=== PATIENT | male | born 1995 | race Caucasian/White ===

== ENCOUNTER 2020-11-08 17:40 | Emergency (ER) | payer OTHER, MEDICAID, SELFPAY ==
--- NOTE | ~2020-11-08 | XR_ITS ---
EXAMINATION: XR CHEST CLINICAL INFORMATION: s/p Heimlich, r/o aspiration COMPARISON: None TECHNIQUE: Frontal view of the chest was obtained. FINDINGS: No significant abnormality is noted involving the heart, lungs, mediastinum, bony thorax or soft tissues. XR/XR chest 1V IMPRESSION: Unremarkable examination.
[2020-11-08 17:49] VITALS: BP 112/67; PULSE 110; RESP 24; TEMP 37.2; O2SAT 89; BMI 27.9
--- NOTE | 2020-11-08 17:58 | PC.NURSE ---
insulation cupola charger notified of etiology.
--- NOTE | 2020-11-08 18:06 | PC.NURSE ---
pt placed on 3L via nc, with noted improvement to saturation. pt then mvoed to wheelchair and encouraged to stay close to triage room.
--- NOTE | 2020-11-08 18:56 | ED.GENADULT ---
HPI - General Adult General Chief complaint: Dyspnea Stated complaint: chocked steak Time Seen by Provider: 11/08/20 18:45 Source: patient and family Mode of arrival: ambulatory Limitations: no limitations History of Present Illness HPI narrative: Patient comes to emergency room complaining of choking event prior to arrival. Patient states that he was eating steak, all of a sudden could not breathe for a 2nd and started coughing. The patient's father did the Heimlich maneuver, patient was able to spit out 2 large pieces of steak, then drank water and he was able to breeze. After this event, patient continued eating and drinking. The father was concerned that the patient had gurgling noises coming from his throat even though the patient was reading eating and drinking. On arrival, it was documented that the patient's oxygen saturation is 89% on room air and placed on 2 L. however, when I evaluated the patient, patient was on room air saturating at 98%, breathing comfortably, no stridor. Related Data Allergies Allergy/AdvReac Type Severity Reaction Status Date / Time No Known Allergies Allergy Unverified 02/06/20 16:39 [No Known Allergies*] Review of Systems Review of Systems: Constitutional : No Weight loss, No Fever, No Chills, No Night Sweats, No Fatigue, No Malaise ENT/Mouth : No Hearing loss, No Ear Pain, No Nasal Congestion, No Sinus Pain, No Hoarseness, No sore throat, No Rhinorrhea, No Swallowing Difficulty Eyes: No Eye Pain, No Swelling, No Redness, No Foreign Body, No Discharge, No Vision Changes Cardiovascular : No Chest Pain, No SOB, No Dyspnea on Exertion, No Orthopnea, No Edema, No Palpitations Respiratory : No Cough, No Sputum, No Wheezing, No Smoke Exposure, No Dyspnea Gastrointestinal : No Nausea, No Vomiting, No Diarrhea, No Constipation, No abdominal Pain, No Hematochezia, No Melena, status post choking event Genitourinary : no irregular bleeding, No Dysuria, No Urinary Frequency, No Hematuria, No Urinary Incontinence, No Urgency, No Flank Pain, No Urinary Flow Changes, No Hesitancy Musculoskeletal : No joint pain, No Myalgias, No Joint Swelling Skin : No Skin Lesions, No rash Neuro : No Weakness, No Numbness, No Paresthesias, No Loss of Consciousness, No Dizziness, No Headache Psych : No Anxiety/Panic, No Depression, No SI/HI/AH/VH, No Social Issues, Heme/Lymph: No Bruising, No Bleeding,No Lymphadenopathy Endocrine : No Polyuria, No Polydipsia, No Temperature Intolerance PMF Past Medical History Medical History Autism Seizure Surgical History No history of previous surgery Social History Social History Alcohol intake: never Patient Tobacco Use Status: Never used Tobacco Use of substances other than those prescribed or required for medical reasons: Yes Advance Directives: No Advance Directives Information Provided: No Physical Exam Vital Signs: Vital Signs: Last Vital Signs Temp 97.7 F 11/08/20 19:16 Pulse 104 H 11/08/20 19:16 Resp 18 11/08/20 19:16 BP 118/80 11/08/20 19:16 Pulse Ox 94 11/08/20 19:16 Body Mass Index 27.9 Appearance: Alert. Oriented X3. No acute distress. Eyes: Pupils equal, round and reactive to light. ENT: Pharynx normal. Neck: Normal inspection. Neck supple. No lymph nodes noted. No crepitus CVS: Normal heart rate and rhythm. Pulses normal. Normal S1 and S2 Respiratory: No respiratory distress. Breath sounds normal. No Wheezing. No rales Abdomen: Soft and nontender. No rigidity. No distention. , no abdominal ecchymosis Skin: Skin warm and dry. Normal skin color. Normal skin turgor. Extremities: No lower extremity edema. No lower extremity edema. No Lacerations. No Rash Neuro: Oriented X 3. No motor deficit. No sensory deficit. Moving all extermities. No slurred speech. Course Course Course Narrative: Patient has been on observation for almost 3 hours, patient's oxygen saturation has remained constant above 98% on room air. No coughing, no stridor. Patient is asymptomatic. He was p.o. challenged with both fluids and solids and did well. I discussed the x-ray with his father as well. Medical Decision Making Imaging Data Chest x-ray: Radiologist's impression: CLINICAL INFORMATION: s/p Heimlich, r/o aspiration COMPARISON: None TECHNIQUE: Frontal view of the chest was obtained. FINDINGS: No significant abnormality is noted involving the heart, lungs, mediastinum, bony thorax or soft tissues. XR/XR chest 1V IMPRESSION: Unremarkable examination. Discharge Plan Discharge Clinical Impression: Choking due to food in larynx Qualifiers: Encounter type: initial encounter Qualified Code(s): T17.320A - Food in larynx causing asphyxiation, initial encounter Patient Disposition: Home, Self-Care Instructions: Performing the Heimlich Maneuver (ED) Additional Instructions: Please follow-up with your primary care physician tomorrow. If you have any worsening or new symptoms, please return to the emergency room or call 911
[2020-11-08 19:16] VITALS: BP 118/80; PULSE 104; RESP 18; TEMP 36.5; O2SAT 94
--- NOTE | 2020-11-08 19:22 | PC.NURSE ---
noticed that while taking vital signs patients SO2 would droip to mid 80s and then shoot right back up. Inspected the hand and found the SPO2 monitor had been placed over a fingure which had a bandaid and moved the SPO2 monitor to another figure. SPO2 came back up to upper 90s.
== END 2020-11-08 21:36 | disposition home or self-care (01) ==
PROVIDERS: Emergency Provider Emergency Medicine; PCP Internal Medicine Medical Oncology
DX: T17.320A Food in larynx causing asphyxiation, initial encounter (principal); X58.XXXA Exposure to other specified factors, initial encounter; Y93.9 Activity, unspecified; Y92.9 Unspecified place or not applicable; Y99.9 Unspecified external cause status
CPT/HCPCS: 71045; 99283; 99284

== ENCOUNTER 2025-04-28 15:00 | Outpatient (AMB) | payer MEDICAID, SELFPAY ==
--- OUTSIDE RECORDS SUMMARY | 2024-01-17 11:00 | XMS_ITS ---
Author Organization Iain Rao III, MD Address [address] [place] [address] [place] [address] Care Team Providers Care Green Chain Puller Name Role Phone Dr. Iain Rao III Primary Care Provider Allergies Allergen (clinical drug ingredient) Drug/Non Drug Allergy documented on EMR Reaction Allergy Type Onset Date Status No Known Drug Allergy Unknown Drug Allergy Active REASON FOR VISIT annual exam Medications Medication SIG (Take, Route, Fr equency, Duration) Notes Start Date End Date Status levETIRAcetam 500 MG Oral Active Social History Tobacco Use: Social History Observation Description Date Details (start date - stop date) Never Smoker NA - NA Sex Assigned At : Social History Observation Description Sex Assigned At Male Tobacco Use/Smoking Question Answer Notes Patient is a nonsmoker Additional Findings: Tobacco Non-User Aggressive non-smoker Alcohol Screen Question Answer Notes Did you have a drink containing alcohol in the p ast year? No Points 0 Interpretation Negative Vital Signs Temperature 98.4 degrees Fahrenheit 01/17/20 24 Blood pressure systolic 109 mm Hg 01/17/20 24 Blood pressure diastolic 68 mm Hg 024 Heart Rate 81 /min 01/17/2024 Height 69 in 01/17/2024 Weight 187 lbs 01/17/2024 BMI 27.61 kg/m2 01/17/2024 Encounters Encounter Location Date Provider Diagnosis Iain Rao III, MD [address] [place] [address] [place] [address] 01/17/2024 Iain Rao Seizure disorder G40.909 ; Autism F84.0 and Overweight E66.3 Assessments Encounter Date Diagnosis (ICD Code) Assessment Notes Treatment Notes Treatment Clinical Notes 01/17/2024 Seizure disorder (ICD-10 - G40.909) He will continue on his current medications. I have suggested he see the neurologist at least once a year. 01/17/2024 Autism (ICD-10 - F84.0) This problem is stable and a diagnosis has been made. He is currently in transition from school to work. 01/17/2024 Overweight (ICD-10 - E66.3) His body mass index is now 27. We discussed his diet and nutrition at length. He will continue to lose weight until his body mass index is in the normal range. He will be physically active. Plan Of Treatment Medication Medication Name Sig Start Date Stop Date Notes levETIRAcetam 500 MG Oral Next Appt Details Follow Up: 6 Months, Reason: OV Provider Name:Iain Rao , 05/14/2025 09:30:00 AM, [address] [place] [address], [id number], Progress Notes * Brooks GERMAINDOB:1995 (28 yo M)Acc No.[id number]:01/17/2024 Progress Notes Patient: Brooks Barclay Provider: Taco Rao MD :1995 A ge:28 Y S ex:Male Date:01/17/2024 Address:[address] [place], [place] [id number] Subjective: * Chief Complaints: * A nnual exam * HPI: D epression Screening: He returns to the office at the age of 28 for his annual physical examination. He was accompanied by his father who says he has been healthy and well since his last visit. He is taking no new medications. He has had no hospitalizations or emergency room visits. He has had no invasive procedures. He has no new allergies. PHQ-9 L ittle interest or pleasure in doing things?More than half the days F eeling down, depressed, or hopeless N ot at all T rouble falling or staying asleep, or sleeping too much N ot at all F eeling tired or having little energy N ot at all P oor appetite or overeating N ot at all F eeling bad about yourself or that you are a failure, or have let yourself or your family down N ot at all T rouble concentrating on things, such as reading the newspaper or watching television N ot at all M oving or speaking so slowly that other people could have noticed; or the opposite, being so fidgety or restless that you have been moving around a lot more than usual N early every day T houghts that you would be better off or of hurting yourself in some way N ot at all T otal Score 5 I nterpretation M ild Depression C OVID-19 Screening: Questions H ave you experienced fever, chills, cough, sore throat, shortness of breath, difficulty breathing, muscle aches, loss of taste or smell? N o H ave you been exposed to the virus within the last 10 days? N o H ave you travelled internationally in the last 10 days? N o H ave you been exposed to COVID-19 in the past? N o S IMELDA Questions: SDOH Questions I n the past year have you been worried about losing your housing? N o I n the past year have you or any family members you live with been unable to get any of the following when it was really needed? Check all that apply: F ood * ROS: G eneral/Constitutional: pain o nly normal aches and pains. C hills d enies.?Fatigue a dmits. F ever d enies. E NT: Decreased hearing d enies. R espiratory: Cough d enies. C ardiovascular: Chest pain with exertion d enies. D yspnea on exertion?denies. S hortness of breath d enies. G astrointestinal: Constipation o ccasional. D ecreased appetite d enies. D iarrhea d enies. H eartburn d enies. N ausea d enies. R ectal bleeding d enies. V omiting d enies. H ematology: bruising d enies. p etechiae d enies. S wollen glands n one have been noted. G enitourinary: Frequent urination d enies. M usculoskeletal: Muscle aches d enies. P ainful joints d enies. S ciatica d enies. W eakness d enies. S kin: Itching d enies. R maria dolores d enies. S kin lesion(s)?denies. N eurologic: Difficulty speaking d enies. D izziness d enies.?Headache d enies. L ow back pain d enies. P sychiatric: Depressed mood d enies. * Medical History: * Surgical History: D enies Past Surgical History * Hospitalization/Major Diagno stic Procedure: D enies Past Hospitalization * Family History: F ather: alive 54 yrs, Anxiety and depression. M other: alive 51 yrs, Hyperlipidemia. He has no brothers or sisters. He has no children. His parents are alive and well. His father has a history of anxiety and depression. He is not aware of any other family history of mental illness. He is not aware of any family history of addiction or substance use disorder. * Social History: T obacco Use: T obacco Use/Smoking P atient is a n onsmoker A dditional Findings: Tobacco Non-User A ggressive non-smoker D rugs/Alcohol: D rugs H ave you used drugs other than those for medical reasons in the past 12 months? N o Alcohol Screen D id you have a drink containing alcohol in the past year? N o P oints 0 I nterpretation N egative Radha cid is autistic and lives with his parents who are healthy and well. He lives and [place], [place], and was born in [place], [place]. He is currently in transition from school to employment. * Medications: T akinglevETIRAcetam 500 MG Tablet Oral Medication List reviewed and reconciled with the patientTaking levETIRAcetam 500 MG Tablet Oral Medication List reviewed and reconciled with the patient * Allergies: N o Known Drug Allergyno[Allergies Verified] Objective: * Vitals: H t: 69, Wt: 187, BMI:27.61, BP: 109/68, HR: 81, Temp: 98.4, Wt-k.82. * Examination: G eneral Examination: GENERAL APPEARANCE: p leasant, well nourished, well developed, in no acute distress, calm and relaxed , overweight , man. HEAD: a traumatic, normocephalic. EYES: e gil, perrla, anicteric, conjugate. EARS: n ormal. NOSE: s eptum intact. ORAL CAVITY: n ormal, unremarkable. NECK/THYROID: n o jugular venous distention, no carotid bruit, thyroid normal. LYMPH NODES: n o enlarged lymph nodes,spleen normal. SKIN: n o suspicious lesions, anicteric. HEART: n o clicks, gallops, murmurs, or rubs, regular rhythm, S1, S2 normal, no s3, or vascular bruits. LUNGS: c lear to auscultation . BREASTS: no masses palpable bilaterally. ABDOMEN: b owel sounds normal, no ascites, no organomegaly, no mass , overweight. RECTAL EXAM: n ot examined. MUSCULOSKELETAL: e xtremities unremarkable, no clubbing, cyanosis or edema. PERIPHERAL PULSES: n ormal. NEUROLOGIC: a lert and oriented, cranial nerves 2-12 grossly intact, deep tendon reflexes 2+ symmetrical, motor strength normal upper and lower extremities, sensory exam intact. PSYCH: a lert, oriented, Autistic. Assessment: * Assessment: 1. S eizure disorder - G40.909 (Primary), He will continue on his current medications. I have suggested he see the neurologist at least once a year. 2 . A utism - F84.0, This problem is stable and a diagnosis has been made. He is currently in transition from school to work. 3 . O verweight - E66.3, His body mass index is now 27. We discussed his diet and nutrition at length. He will continue to lose weight until his body mass index is in the normal range. He will be physically active. Plan: * Treatment: * Procedure Codes: * Preventive Medicine: Counseling: C are goal follow-up plan: Counseling for abnormal BMI given Y es Above Normal BMI Follow-up D ietary management education, guidance, and counseling, Dietary needs education, Exercise promotion: strength training, Exercise promotion: stretching, Feeding regime, Giving encouragement to exercise, Lifestyle education regarding diet, Nutrition / feeding management, Nutrition therapy, Prescribed activity/exercise education, Prescribed diet education, Prescribed dietary intake, Special diet education, Weight monitoring , Intervention, Order not done: Medical or Other reason not done * Follow Up: 6 Months (Reason: OV) * Images: * Sign off status: Completed true * Provider: Taco Rao MD Date: 0 01/17/2024 Generated for Printi ng/Eligio/eTransmitting on: 1 06/30/2024 12:26 AM EST History and Physical Notes * HPI (History of Present Illness) Category Sub-Category Detail Notes Depression Screening PHQ-9 Little inte rest or pleasure in doing things: More than half the days Feeling down, depressed, or hopeless: No t at all Trouble falling or staying asleep, or sl eeping too much: Not at all Feeling tired or having little energy: N ot at all Poor appetite or overeating: Not at all Feeling bad about yourself o r that you are a failure, or have let yourself or your family down: Not at all Trouble concentrating on thi ngs, such as reading the newspaper or watching television: Not at all Moving or speaking so slowly that other people could have noticed; or the opposite, being so fidgety or restless that you have been moving around a lot more than usual: Nearly every day Thoughts that you would be b rula off or of hurting yourself in some way: Not at all Total Score: 5 Interpretation: Mild Depression COVID-19 Screening Questions Have you had any new onset fever, chills, cough, congestion, sore throat, shortness of breath, muscle aches?: No Have you been exposed to the virus withi n the last 10 days?: No Have you travelled internationally in e last 10 days?: No Have you been exposed to COVID-19 in the past?: No SDOH Questions SDOH Questions In the past year have you been worried about losing your housing?: No In the past year have you or any family members you live with been unable to get any of the following when it was really needed? Check all that apply:: Food Examination Category Sub-Category Detail Notes General Examination GENERAL APPEARANCE: pleasant , well nourished, well developed, in no acute distress, calm and relaxed , overweight , man HEAD: atraumatic, normocep halic EYES: eomi, perrla, anicte millie, conjugate EARS: normal NOSE: septum intact NECK/THYROID: no jugular venous di stention, no carotid bruit, thyroid normal HEART: no clicks, gallops, murmurs, or rubs, regular rhythm, S1, S2 normal, no s3, or vascular bruits LUNGS: clear to auscultatio n ABDOMEN: bowel sounds normal, no ascites, no organomegaly, no mass , overweight NEUROLOGIC: alert and oriented, cranial nerves 2-12 grossly intact, deep tendon reflexes 2+ symmetrical, motor strength normal upper and lower extremities, sensory exam intact SKIN: no suspicious lesion s, anicteric PERIPHERAL PULSES: normal BREASTS: no masses palpable b ilaterally MUSCULOSKELETAL: extremities unremark able, no clubbing, cyanosis or edema LYMPH NODES: no enlarged lymph no cha,spleen normal RECTAL EXAM: not examined PSYCH: alert, oriented, Aut istic ORAL CAVITY: normal, unremarkable
--- NOTE | 2025-04-28 15:11 | A.OFFVIS_ITS ---
Intake Visit Reasons: 1 YR F/U Accompanied by: Mother Allergies No Known Allergies (No Known Allergies*) Allergy (Unverified 04/28/25 15:16) Medication List - Last Reconciled 04/28/25 by Hillary Alaniz CNP levetiracetam 750 mg orally 1 tablet in the morning and 2 tablets at bedtime; 90 days HPI Comments Details: 29-year-old man with a diagnosis of autism and seizure disorder. He was doing okay. He was taking levetiracetam 750mg in the morning and 1500mg at bedtime, no further seizures. Last seizure in 04/2024. No medication side effects. Sleep was okay. Mood was okay. [facility] Medical History Autism Seizure Surgical History No history of previous surgery Social History Alcohol intake: never Patient Tobacco Use Status: Never used Tobacco Review of Systems Const Denies chills, Denies daytime sleepiness, Denies difficulty sleeping, Denies fatigue, Denies fever(s), Denies frequent falls, Denies headache(s), Denies increased appetite, Denies poor appetite, Denies snoring, Denies weakness, Denies weight gain and Denies weight loss Eyes Denies loss of vision ENT Denies vertigo, Denies dizziness and Denies headache(s) Card Denies chest pain at rest, Denies chest pain with activity, Denies syncope, Denies leg edema and Denies palpitations Resp Denies snoring GI Denies constipation, Denies heartburn, Denies diarrhea and Denies nausea Denies urinary frequency, Denies urinary incontinence and Denies urinary urgency Musc Denies abnormal gait, Denies numbness and Denies tingling Skin/Breast Denies dry skin and Denies rash Neuro Denies abnormal gait, Denies vertigo, Denies dizziness, Denies syncope, Denies frequent falls, Denies headache(s), Denies lack of coordination, Denies loss of vision, Denies memory loss, Denies numbness, Denies restless legs, Reports seizure-like activity, Denies tingling, Denies paresthesias, Denies tremor(s) and Denies weakness Psych Denies anxiety, Denies depression, Denies auditory hallucinations, Denies memory loss, Denies visual hallucinations and Denies suicidal ideation Endo Denies fatigue and Denies palpitations Physical Exam Const Other: General Appearance:? normal, in no acute distress. Skin:? no rashes, no significant birthmarks. Heart:? S1, S2 normal, no murmurs. Lungs:? clear anteriorly and posteriorly. Extremities:? no edema. Psych:? alert, cooperative with exam. Neuro Other: Mental Status:?Alert and awake with normal attention and flat affect. Answers questions in monotone voice. Cranial Nerves:?Pupils are equal, round and reactive to light. External occular muscles are intact. Visual becerra are full. Face is symmetrical. Facial sensations are normal. Tongue is midline. Palate elevates symmetrically. Shoulder shrugging is normal. Hearing to bedside conversation is normal. Sensory Exam:?....? Coordination:?No ataxia,?no titubation.? Gait Exam: Within normal limits. Cerebellar Signs:?Qungbl-ta-plbd is okay. Extrapyramidal System:?No tremor, rigidity with normal facial expressions.? Pronator Drift:?Not present.? Involuntary Movements:?No tremors seen.? Speech:?Normal.? Results Reviewed Results Reviewed: EEG at office in Feb 2016: WNL CT brain WO at [facility] in Feb 2016: ok except scalp hematoma and right lateral ventricle is somewhat larger than left. 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 Follow up in 1 year or sooner as needed. 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
--- OUTSIDE RECORDS SUMMARY | 2025-04-29 00:27 | XMS_ITS | Encounter Summary ---
Author Organization [facility] Address [address] [place] [phone] Phone Care Team Providers Care Searchlight Operator Name Role Phone Carrie De Santiago MD Primary Care Provider [phone] Encounter Details Date Type Department Care Team (Late st Contact Info) Description 09/29/2016 Documentation [facility] [place] [facility] [address] [place] [address] Family Medicine, Physician [address] [place], [place] [id number] Social History Tobacco Use Types Packs/Day Years Used Date Smoking Tobacco: Never Comments:Never smoker Sex and Gender Information Value Date Recorded Sex Assigned at Not on file Legal Sex Male 4:53 PM EDT Gender Identity Not on file Sexual Orientation Not on file documented as of this encounter Plan of Treatment Not on file documented as of this encounter Visit Diagnoses Not on filedocumented in this encounter Care Teams Searchlight Operator Relationship Specialty Start Date End Date Carrie De Santiago MD [address] [facility] [place] [address] PCP - General 12/30/16 09/08/20 documented as of this encounter
--- OUTSIDE RECORDS SUMMARY | 2025-04-29 00:27 | XMS_ITS | Encounter Summary ---
Author Organization [facility] Address [address] [place] [id number] Phone Care Team Providers Care Paid Search Marketing Analyst Name Role Phone Carrie De Santiago MD Primary Care Provider Encounter Details Date Type Department Care Team (Late st Contact Info) Description 10/24/2012 Documentation [facility] [place] [facility] [address] [place] [address] Family Medicine, Physician [address] [place], [place] [id number] Social History Tobacco Use Types Packs/Day Years Used Date Smoking Tobacco: Never Assessed Sex and Gender Information Value Date Recorded Sex Assigned at Not on file Legal Sex Male 4:53 PM EDT Gender Identity Not on file Sexual Orientation Not on file documented as of this encounter Plan of Treatment Not on file documented as of this encounter Visit Diagnoses Not on filedocumented in this encounter Care Teams Paid Search Marketing Analyst Relationship Specialty Start Date End Date Carrie De Santiago MD [address] [facility] [place] [address] PCP - General 12/30/16 09/08/20 documented as of this encounter
--- OUTSIDE RECORDS SUMMARY | 2025-04-29 00:27 | XMS_ITS | Encounter Summary ---
Author Organization [facility] Address [address] [place] [address] Phone Care Team Providers Care Manager Field Name Role Phone Carrie De Santiago MD Primary Care Provider Encounter Details Date Type Department Care Team (Late st Contact Info) Description 01/05/2017 Conversion Encounter [facility] [place] [address] [place] [address] Social History Tobacco Use Types Packs/Day Years [...] on filedocumented in this encounter Care Teams Manager Field Relationship Specialty Start Date End Date Carrie De Santiago MD [address] [place] [address] PCP - General 12/30/16 09/08/20 documented as of this encounter
--- OUTSIDE RECORDS SUMMARY | 2025-04-29 00:27 | XMS_ITS | Clinical Summary ---
Author Organization [facility] Address [address] [place] [id number] Phone Care Team Providers Care Marketing Project Coordinator Name Role Phone Unavailable Primary Care Provider Unavailabl e Allergies No known active allergies Medications levETIRAcetam 250 MG tablet Take 250 mg by mouth 2 (two) times a day. 5 01/27/2017 Active Active Problems Problem Noted Date Diagnosed Date Seizure 03/07/2017 Overview (04/10/2017): First and only seizure in February 2016 - followed by Neurology, on Levetiracetam Assessment & Plan (03/08/2017 7:41 AM EDT): First and only seizure in February 2016 - followed by Neurology Autism 03/01/2016 Overview (03/08/2017): In [facility] Assessment & Plan (03/08/2017 7:41 AM EDT): In [facility] Immunizations Immunization Administration Dates Next Due DTP 03/24/1998, 7,01/08/1997,11/06 DTaP 5 09/13/2000 H1N1 05/13/2009 HPV Vaccine 9 Valent 09/10/2015,04/27/2015,02/24 Hep A, ped/adol 02/18/2014,12/17/2010 Hep B, ped/adol 06/11/1997,1996,1996 Hib (PRP-T) 12/09/1997, 7,01/08/1997,11/06 IPV 09/13/2000 Influenza Split 02/01/2013, 2,03/29/2011,03/25 Influenza, injectable, quadrivalent 02/24/2015 Influenza, injectable, quadr ivalent, preservative free 03/07/2017,03/01/2016,02/18/2014 Influenza, injectable, trivalent 009,03/12/2008,05/09/2003,04/09 MMR 09/13/2000,12/09/1997 Meningococcal Conj (Menactra) MCV4P 03/01/2016,0 10/08/2007 OPV 03/24/1998,01/08/1997,1996 Tdap 10/08/2007 Varicella 10/08/2007,09/05/1997 Family History Medical History Relation Name Comments ADD / ADHD Father Depression Father Relation Name Status Comments Father Alive Father: ADD/ADH D Depression Mother Alive Mother: Migrain es Other 1 Alive uncle: No Famil y history of No history of ADD/ADHD Other 2 No family histo ry of Thrombophilia, No family history of Sudden /NC under age 55, No family history of Dental caries, No family history of CVA (Stroke) Paternal Grandfather Paterna l grandfather: Heart disease Social History Tobacco Use Types Packs/Day Years Used Date Smoking Tobacco: Never Smokeless Tobacco: Never Comments:Never smoker Sex and Gender Information Value Date Recorded Sex Assigned at Not on file Legal Sex Male 4:53 PM EDT Gender Identity Not on file Sexual Orientation Not on file Last Filed Vital Signs Vital Sign Reading Time Taken Comments Blood Pressure 111/71 03/07/2017 3:07 PM EDT Pulse 78 03/07/2017 3:07 PM EDT Temperature 37.3 C (99.2 F) 03/11/2015 12:00 AM EDT Respiratory Rate - - Oxygen Saturation - - Inhaled Oxygen Concentration - - Weight 85.8 kg (189 lb 3.2 oz) 03/07/2017 3:07 P M EDT Height 172.7 cm (5' 8 ) 03/07/2017 3:07 PM EDT Body Mass Index 28.77 03/07/2017 3:07 PM EDT Plan of Treatment Health Maintenance Due Date Last Done Comments Hepatitis B Vaccines (3 of 3 - 3-dose series) 08/06/1997 06/11/1997, 1996, 1996 DTaP,Tdap,and Td Vaccines (7 - Td or Tdap) 10/07/2017 10/08/2007, 09/13/2000, 03/24/1998, Additional history exists Influenza Vaccines (#1) 2024 03/07/20 17, 03/01/2016, 02/24/2015, Additional history exists COVID-19 Vaccine ( season) 2025 HIB Vaccines Completed 12/09/1997, 02/20, 01/08/1997, Additional history exists IPV Vaccines Completed 09/13/2000, 07/1997, 01/08/1997, Additional history exists MMR Vaccines Completed 09/13/2000, 12/09/1997 Varicella Vaccines Completed 10/08/2007, 09/05/1997 Hepatitis A Vaccines Completed 02/18/2014, 12/18/19 11 HPV Vaccines Completed 09/10/2015, 12/0 11/2014, 02/24/2015 Meningococcal Vaccine Aged Out 03/01/2016, 008 No longer eligible based on patient's age to complete this topic Men B Vaccine Aged Out No longer elig ible based on patient's age to complete this topic Pneumococcal Vaccine Aged Out No long er eligible based on patient's age to complete this topic Insurance [employer]
== END 2025-04-28 15:20 | disposition home or self-care (01) ==
LOC: HO.HSM 15:00
PROVIDERS: PCP Internal Medicine Medical Oncology; Referring Provider Internal Medicine Medical Oncology; Visit Provider Registered Nurse
DX: G40.409 Other generalized epilepsy and epileptic syndromes, not intractable, without status epilepticus (principal)
CPT/HCPCS: 99213

== ENCOUNTER → 2025-04-28 15:00 | Outpatient (BNVA) | payer MEDICAID, SELFPAY | PROVIDERS: PCP Internal Medicine Medical Oncology; Referring Provider Internal Medicine Medical Oncology; Visit Provider Registered Nurse | DX: G40.409 Other generalized epilepsy and epileptic syndromes, not intractable, without status epilepticus (principal); Z79.899 Other long term (current) drug therapy | CPT/HCPCS: 99212 ==